=== PATIENT | female | born 1990 ===

== ENCOUNTER 2023-01-01 07:07 | Day surgery (SDC) | payer OTHER ==
[~2023-01-01] VITALS: Ht 170.2 cm; Wt 77.1 kg
== END 2023-01-01 13:55 | disposition home or self-care (01) ==
LOC: CIR.AMB 07:07
PROVIDERS: ATTEND Colon & Rectal Surgery
DX: K60.3 Anal fistula (principal); K92.1 Melena; Z87.891 Personal history of nicotine dependence; Z20.822 Contact with and (suspected) exposure to COVID-19